=== PATIENT | male | born 1980 | race Caucasian/White ===

== ENCOUNTER 2025-05-12 12:17 | Emergency (ER) | payer BC, OTHER, SELFPAY ==
[2025-05-12 12:18] VITALS: BMI 27.8
[2025-05-12 12:25] VITALS: BP 136/82; PULSE 76; RESP 18; TEMP 36.7; O2SAT 98
--- NOTE | 2025-05-12 12:33 | XR_ITS ---
EXAMINATION: Ankle, right 3 views . Technique: Ankle AP, oblique, lateral 3 views Date and time of exam: May 12, 2025 1232 hours INDICATIONS: Patient fell today with into the ankle, ankle pain. FINDINGS: No fracture or dislocation. IMPRESSION: No fracture or dislocation
--- NOTE | 2025-05-12 13:43 | PD.EDLOWEX ---
Lower Extremity Injury RME/HPI General Chief Complaint: Extremity Injury, Lower Stated Complaint: POSS. R) ANKLE FX Time Seen by Provider: 05/12/25 12:19 Arrival date/time: 05/12/25 12:17 44-year-old male presents to the emergency department today for complaints of right ankle pain patient reports that he twisted his right ankle today and felt a pop Limitations: no limitations Related Data Home Medications ?Medication ?Instructions ?Recorded ?Confirmed fluticasone fur. 200 mcg-umeclid 1 inh inhalation QDAY 02/18/24 02/18/24 62.5 mcg-vilant 25 mcg inhalat.powder (Trelegy Ellipta) montelukast 10 mg tablet 10 mg PO QDAY 02/18/24 02/18/24 Previous Rx's ?Medication ?Instructions ?Recorded ibuprofen 800 mg tablet 800 mg PO TID PRN pain #30 tabs 05/12/25 Allergies Allergy/AdvReac Type Severity Reaction Status Date / Time No Known Allergies Allergy Verified 05/12/25 12:20 Review of Systems Review of Systems Systems Reviewed: All systems reviewed, normal except as documented Constitutional Constitutional: Reports system reviewed and no additional complaints, except as documented, Denies fever(s) and Denies headache(s) Eyes Eyes: Reports system reviewed and no additional complaints, except as documented and Denies blurry vision ENT Ears, Nose, Mouth, and Throat: Reports system reviewed and no additional complaints, except as documented, Denies headache(s), Denies nasal congestion and Denies nasal discharge Cardiovascular Cardiovascular: Reports system reviewed and no additional complaints, except as documented, Denies chest pain and Denies dyspnea Respiratory Respiratory: Reports system reviewed and no additional complaints, except as documented, Denies chest congestion, Denies cough and Denies dyspnea Gastrointestinal Gastrointestinal: Reports system reviewed and no additional complaints, except as documented and Denies abdominal pain Musculoskeletal Musculoskeletal: Reports system reviewed and no additional complaints, except as documented, Reports abnormal gait, Reports arthralgias, Denies deformity, Reports joint swelling, Denies numbness, Reports stiffness, Denies tingling and Reports other (Mild swelling right lateral malleolus) Integumentary/Breasts Skin/Breast: Reports system reviewed and no additional complaints, except as documented and Denies rash Neurologic Neurologic: Reports system reviewed and no additional complaints, except as documented, Reports as per HPI, Reports abnormal gait, Denies headache(s), Denies numbness and Denies tingling Past Medical History Past Medical History NEUROLOGIC: Negative Neurological Disorders or Seizures CARDIAC: Positive Cardiac Disorders and Hypertension (MILD. NO MEDS); Negative Congestive Heart Failure RESPIRATORY: Positive Asthma; Negative Chronic Obstructive Pulmonary Disease (COPD) GASTROINTESTINAL: Positive Gastrointestinal Disorders (DIARRHEA ABOUT 2 TIMES A WEEK) GENITOURINARY: Negative Genitourinary Disorders or Renal Disease MUSCULOSKELETAL: Negative Musculoskeletal Disorders ENDOCRINE: Negative Endocrine Disorders, Diabetes Mellitus Type 1 or Diabetes Mellitus Type 2 HEMATOLOGIC: Negative Blood Disorders OTHER HISTORY: Positive Anesthesia Reactions (STATES SEDATION GIVEN PREOP NOT EFFECTIVE) and Chicken Pox; Negative Falls, Blood Transfusions, Blood Transfusion Reaction, MRSA or Cancer Family History FAMILY HISTORY: Positive Family Cancer (FATHER- SKIN ,POSSIBLE COLON) and Family Anesthesia Reaction (FATHER- HARD TO AROUSE); Negative Family Cardiac Disorders Surgical History SURGICAL: Positive Tympanostomy Tube ( CHILD) and Abdominal Surgery Social History SMOKING STATUS: Never smoker SUBSTANCE USE: marijuana ED Exam General Limitations: Present no limitations General appearance: Present alert and in no apparent distress Head Head exam: Present atraumatic, normocephalic and normal inspection Eye Eye exam: Present normal appearance, PERRL and EOMI; Absent conjunctival injection ENT ENT exam: Present normal exam, normal oropharynx and mucous membranes moist Neck Neck exam: Present normal inspection, full ROM and trachea midline Chest Chest inspection: Present normal inspection and symmetric chest wall rise Respiratory Respiratory exam: Present normal lung sounds bilaterally; Absent respiratory distress Cardiovascular Cardiovascular exam: Present regular rate, normal rhythm and normal heart sounds Abdominal Exam Abdominal exam: Present soft and normal bowel sounds Extremities Exam Extremities exam: Present full ROM, tenderness, normal capillary refill and joint swelling; Absent pedal edema or calf tenderness Back Exam Back exam: Present normal inspection and full ROM Neurological Exam Neurological exam: Present alert, oriented X3 and CN II-XII intact Psychiatric Psychiatric exam: Present normal affect and normal mood Skin Skin exam: Present warm, dry, intact and normal color Course Quality Measures none Orders Category Date Time Status onofre wrap [Splint / Immobilizer] STAT Care 05/14/25 06:46 Active XR ankle comp RT min 3V Stat Exams 05/12/25 12:33 Completed Vital Signs Vital signs: Vital Signs Temperature 98.1 F 05/12/25 12:25 Pulse Rate 76 05/12/25 12:25 Respiratory Rate 18 05/12/25 12:25 Blood Pressure 136/82 H 05/12/25 12:25 Pulse Oximetry (%) 98 05/12/25 12:25 Oxygen Delivery Method Room Air 05/12/25 12:25 O2 saturation 98% room air within normal limits Extremity Injury, Lower MDM Narrative MDM Narrative:: 44-year-old male presents to the emergency department today for complaints of right ankle pain patient reports that he twisted his right ankle today and felt a pop On exam patient well-appearing patient does not appear ill or toxic in no acute distress Patient has mild swelling right lateral malleolus no deformity noted no numbness or tingling Imaging obtained no acute fracture dislocation noted Patient placed in Onofre wrap patient has his own crutches Patient discharged home in no distress to follow-up with primary care doctor in the next 24 to 48 hours and for any worsening symptoms to return to the ER immediately Patient data External records reviewed:: [facility] previous records Clinical information provided by:: patient Social determinants that could affect healthcare access:: none Patient has the following chronic illnesses:: None How is presenting disease/condition affected by chronic disease/condition?: no chronic disease Evaluation data The following diagnostics were reviewed and interpreted by me:: radiology exam(s) Lab and/or radiology exams considered but not ordered:: Radiology obtain Interpretation Summary: Reviewed by me Medications / Prescriptions Medications or Prescriptions considered but not ordered:: Given Medication administrations:: Given Consultations Consultation(s) initiated? (list below): No Diagnosis Extremity Injury, Lower Differential Diagnosis: ankle sprain and strain and ankle fracture Most likely diagnosis given after review of the tests above:: Ankle sprain Admission Indicated Admission indicated?: not indicated Admission Request Was there a request for admission?: No Disposition Plan Disposition Plan: Discharge Discharge Attestation Discharge Attestation: The patient and all family members were given an opportunity to ask questions and understood the discharge instructions. Discharge instructions specifically effects, indications for sooner follow up or return to the emergency department, and the expected course of current diagnosis. Patient condition: Stable Discharge Plan Plan Patient Disposition: HOME (Self Care) Discharge Disposition comment: Stable Prescriptions/Referrals Prescriptions/Med Rec: New ibuprofen 800 mg tablet 800 mg PO TID PRN (Reason: pain) Qty: 30 0RF No Action montelukast 10 mg tablet 10 mg PO QDAY Patient Comments: TAKE 1 TABLET BY MOUTH EVERY DAY FOR 90 DAYS Trelegy Ellipta 200-62.5-25 mcg blister with device 1 inh INHALATION QDAY Patient Comments: TAKE 1 PUFF BY MOUTH EVERY DAY FOR 90 DAYS 30 Referrals: Bia Davis MD [Primary Care Provider] - 05/13/25 Problem List Clinical Impression: Ankle sprain and strain Patient/Caregiver Discharge Instructions Additional Instructions: Please follow up with your primary care doctor in the next 24-48hrs for any worsening symptoms return here immediately Print Language: Hebrew Stand Alone Forms: Debra Award Info., Work/School Release, Patient Portal Info Letter PA/MATERNAL CHILD NURSE Supervising Physician PA/MATERNAL CHILD NURSE Supervising Physician: dr gillis
== END 2025-05-12 18:42 | disposition home or self-care (01) ==
PROVIDERS: Emergency Provider Family Medicine; PCP Family Medicine
DX: S93.401A Sprain of unspecified ligament of right ankle, initial encounter (principal); S96.911A Strain of unspecified muscle and tendon at ankle and foot level, right foot, initial encounter; X50.1XXA Overexertion from prolonged static or awkward postures, initial encounter
CPT/HCPCS: 73610; 99283

== ENCOUNTER → 2025-10-13 | Outpatient (CLI) | payer BC, OTHER, SELFPAY ==
--- NOTE | 2025-10-13 16:25 | XR_ITS ---
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
== END | disposition home or self-care (01) ==
PROVIDERS: PCP Family Medicine; Referring Provider Student in an Organized Health Care Education/Training Program; Visit Provider Student in an Organized Health Care Education/Training Program
DX: M19.072 Primary osteoarthritis, left ankle and foot (principal); M19.071 Primary osteoarthritis, right ankle and foot; M77.32 Calcaneal spur, left foot; M77.31 Calcaneal spur, right foot
CPT/HCPCS: 73630